=== PATIENT | male | born 1995 | race African-American/Black ===

== ENCOUNTER 2019-07-09 15:17 | Emergency (ER) | payer OTHER ==
[2019-07-09 15:23] VITALS: BP 148/65
--- NOTE | 2019-07-09 15:53 | ER Document Report ---
ED Medical Screen (RME) - General Chief Complaint: Back Pain Stated Complaint: BACK PAIN Time Seen by Provider: 07/09/19 15:50 Mode of Arrival: Ambulatory Information source: Patient Notes: 23-year-old male presented to ED for complaint of low back pain. He would also like STD checks. 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 We have ordered chlamydia and gonorrhea and a UA. He will be seen by another provider. RME TRAVEL OUTSIDE OF THE [place] IN LAST 30 DAYS: No - Related Data Allergies/Adverse Reactions: No Known Allergies Allergy (Verified 07/09/19 15:42) Past Medical History - Social History Chew tobacco use (# tins/day): No Frequency of alcohol use: None Drug Abuse: None Physical Exam - Vital signs Vitals: Temp Pulse Resp BP Pulse Ox 98.7 F 69 18 148/65 H 98 07/09/19 15:22 07/09/19 15:22 07/09/19 15:22 07/09/19 15:22 07/09/19 15:22 Course - Vital Signs Vital signs: Temp Pulse Resp BP Pulse Ox 98.7 F 69 18 148/65 H 98 07/09/19 15:22 07/09/19 15:22 07/09/19 15:22 07/09/19 15:22 07/09/19 15:22
[2019-07-09 16:30] LABS: APPEARANCE,URINE CLEAR; BILIRUBIN,URINE NEGATIVE (NEGATIVE); COLOR,URINE STRAW; GLUCOSE, URINE NEGATIVE (NEGATIVE); KETONES,URINE NEGATIVE (NEGATIVE); LEUKOCYTE ESTERASE,URINE NEGATIVE (NEGATIVE); NITRITE,URINE NEGATIVE (NEGATIVE); PROTEIN,URINE NEGATIVE (NEGATIVE); URINE SPECIFIC GRAVITY 1.006; UROBILINOGEN,URINE NEGATIVE mg/dL (<2.0)
--- NOTE | 2019-07-09 17:10 | ER Document Report ---
HPI - HPI Time Seen by Provider: 07/09/19 15:50 Pain Level: 4 Notes: 23-year-old male presents emergency room for evaluation of lower back pain that is been bothering him for the last 8 months, states that he is unable to lift heavy weight because the pain is become progressively worse. Patient just returned from [place] and would like this checked out. Patient is also requesting a GC chlamydia since he is coming back from his appointment. States worse with movements better at rest. Has not tried any [id number] medications for his pain. Has not been seen for his back pain previously. Denies fevers, chills, chest pain,palpitations, shortness of breath, dyspnea, nausea, vomiting, diarrhea, abdominal pain, hematuria,blurred vision, double vision, loss of vision, speech changes, LH, dizziness, syncope, headaches, wheezing, ST, URI, neck pain, weakness, bowel or bladder dysfunction, saddle anesthesia, numbness or tingling in bilateral upper or lower extremities equally, muscle paralysis, weakness in bilateral upper or lower extremities equally or rash. Denies IV drug use. - REPRODUCTIVE Reproductive: DENIES: : Past Medical History - General Information source: Patient - Social History Smoking Status: Current Some Day Smoker Chew tobacco use (# tins/day): No Frequency of alcohol use: None Drug Abuse: None Family History: Reviewed & Not Pertinent Patient has suicidal ideation: No Patient has homicidal ideation: No Vertical Provider Document - CONSTITUTIONAL Agree With Documented VS: Yes Exam Limitations: No Limitations General Appearance: WD/WN Notes: PHYSICAL EXAMINATION:reviewed vital signs by RN GENERAL: Well-appearing, well-nourished and in no acute distress. HEAD: Atraumatic, normocephalic. EYES: Pupils equal round and reactive to light, extraocular movements intact, sclera anicteric, conjunctiva are normal. ENT: Nares patent, oropharynx clear without exudates. Moist mucous membranes. NECK: Normal range of motion, supple without lymphadenopathy LUNGS: Breath sounds clear to auscultation bilaterally and equal. No wheezes rales or rhonchi. HEART: Regular rate and rhythm without murmurs ABDOMEN: Soft, nontender, nondistended abdomen. No guarding, no rebound. No masses appreciated. Musculoskeletal: Normal range of motion, no pitting or edema. No cyanosis. Pain with flexion and extension at 50 degrees, positive straight leg test. Normal hip rotation. DTR +2 in BLE equally. Strength 5 out of 5 both distally and proximally to bilateral lower extremities normal motor and sensory function in BLE equally. Distal pulses + 2 BLE equally. Noted paraspinal tenderness near L2 and L3. Strength 5 out of 5 in bilateral lower extremities equally. no spinal tenderness. No CVA tenderness bilaterally. Femoral pulses + 2 bilaterally and equally. No abrasions, scars, lacerations, ecchymosis of any recent trauma. normal gait. NEUROLOGICAL: Cranial nerves grossly intact. Normal speech, normal gait. Normal sensory, motor exams PSYCH: Normal mood, normal affect. SKIN: Warm, Dry, normal turgor, no rashes or lesions noted. - INFECTION CONTROL TRAVEL OUTSIDE OF THE [place] IN LAST 30 DAYS: No Course - Re-evaluation Re-evalutation: 07/09/19 17:07 Presentation of a well appearing patient complaining of acute on chronic back pain. No rapid progression of symptoms, systemic symptoms including fevers, chills, weight loss, history of recent bacterial infection, bilateral symptoms, numbness, weakness, difficulty walking, urinary retention or bowel incontinence, personal history of cancer, immunosuppression, diabetes, known AAA, or history of IV drug use. Exam is without point tenderness over vertebral bodies, pulsatile abdominal mass, and patient has symmetric and intact lower extremity strength, sensation, and reflexes without clonus. 2+ symmetric medial malleolar and dorsalis pedis pulses Based on history and physical, I have a very low suspicion of a concerning etiology of pain including epidural compression syndrome, spinal infection, transverse myelitis, malignancy, abdominal aortic aneurysm, renal colic, acute lower extremity claudication, neurogenic claudication, ankylosing spondylitis, or other intra-abdominal process. Patient has never had any diagnostic imaging of his lumbar spine, patient is requesting it today, this does seem fair since patient states he has been doing heavy lifting and there could be a concern for compression fracture lumbar xray shows narrowing in the lumbar spine, no acute fracture dislocation. Your GC chlamydia was negative Plan to manage conservatively with outpatient analgesia, analgesia, and physical therapy. - Acetaminophen 650 q 4 + ibuprofen 600 q 6 - Continue normal daily activities as tolerated by pain - Provide with standard musculoskeletal back pain exercise instructions - Instruct to follow up with primary care provider if symptoms not improving - Provide careful return precautions and concerning symptoms to watch for. 07/09/19 18:28 - Vital Signs Vital signs: Temp Pulse Resp BP Pulse Ox 98.7 F 69 18 148/65 H 98 07/09/19 15:22 07/09/19 15:22 07/09/19 15:22 07/09/19 15:22 07/09/19 15:22 Discharge - Discharge Clinical Impression: Lumbar back pain, Concern about STD in male without diagnosis Condition: Stable Disposition: HOME, SELF-CARE Instructions: Low Back Pain ([facility]), Muscle Strain ([facility]), Pain Medication Injection ([facility]), Warm Packs ([facility]) Additional Instructions: You have been seen in the Emergency Department (ED) today for back pain. Your workup and exam have not shown any acute abnormalities and you are likely suffering from muscle strain or possible problems with your discs, but there is no treatment that will fix your symptoms at this time. Please take the naproxen that has been prescribed as directed. You should also purchase a local lidocaine cream such as "aspercreme with lidocaine" and use per bottle instructions to the affected area. Apply heat to the area as often as you are able. Continue to keep active and avoid prolonged periods of bed rest. Your chlamydia gonorrhea was negative Please follow up with your doctor as soon as possible regarding today's ED visit and your back pain. Return to the ED for worsening back pain, fever, weakness or numbness of either leg, or if you develop either (1) an inability to urinate or have bowel movements, or (2) loss of your ability to control your bathroom functions (if you start having "accidents"), or if you develop other new symptoms that concern you.concern you. Prescriptions: Meloxicam [Mobic] 7.5 mg PO DAILY #7 tablet Methocarbamol [Robaxin 500 mg Tablet] 500 mg PO QID PRN #15 tablet PRN Reason: Forms: Return to Work Referrals: AMELIA FUNES JR, DO [ACTIVE PROVISIONAL STAFF] - Follow up as needed SHYANNE WIN MD [ACTIVE STAFF] - Follow up as needed
--- NOTE | 2019-07-09 17:23 | RADIOLOGY REPORT (SQ) ---
EXAM DESCRIPTION: L SPINE WHOLE COMPLETED DATE/TIME: 07/09/2019 5:12 pm REASON FOR STUDY: new onset lower back pain COMPARISON: None. NUMBER OF VIEWS: Five views including obliques. TECHNIQUE: AP, lateral, oblique, and sacral radiographic images acquired of the lumbar spine. LIMITATIONS: None. FINDINGS: MINERALIZATION: Normal. SEGMENTATION: Normal. No transitional anatomy. ALIGNMENT: Normal. VERTEBRAE: Maintained height. No fracture or worrisome bone lesion. DISCS: Mild L5-S1 intervertebral disc space narrowing. POSTERIOR ELEMENTS: Pedicles and facets are intact. No pars defect or posterior arch defects. HARDWARE: None in the spine. PARASPINAL SOFT TISSUES: Normal. PELVIS: Intact as visualized. No fractures or worrisome bone lesions. SI joints intact. OTHER: No other significant finding. IMPRESSION: Mild L5-S1 intervertebral disc space narrowing. TECHNICAL DOCUMENTATION: JOB ID: [id number]- All Rights Reserved Reading location - IP/workstation name: [email or web address]
[2019-07-09 17:52] LABS: CHLAM PCR NOT DETECTED (NOT DETECT)
[2019-07-09] MEDS ORDERED: CEFTRIAXONE INJ 250 MG VIAL IM ONE (17:58)
[2019-07-09] MEDS ORDERED: AZITHROMYCIN 1 GM SUSP PACKET PO ONE (17:58)
[2019-07-09] MEDS ORDERED: LIDOCAINE 1% INJ-PF (10 MG/ML) 30 ML SDV INJ ONE (17:58)
== END 2019-07-09 18:56 | disposition home or self-care (01) ==
LOC: ER 15:17
DX: M54.5 Low back pain (principal); Z20.2 Contact with and (suspected) exposure to infections with a predominantly sexual mode of transmission; F17.200 Nicotine dependence, unspecified, uncomplicated
CPT/HCPCS: 72110; 81001; 87491; 87591; 99283

== ENCOUNTER 2019-08-15 11:01 | Emergency (ER) | payer OTHER ==
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
[2019-08-15] MEDS ORDERED: CEFAZOLIN 2 GM/D5W RTU 2 GM/50 ML RTUPB IV ONE (16:28)
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
[2019-08-15] MEDS ORDERED: CEFAZOLIN 1 GM/D5W RTU 1 GM/50 ML RTUPB IV ONE ×2 (17:06)
[2019-08-15] MEDS ORDERED: CEFAZOLIN 1 GM/D5W RTU 2 GM/100 ML RTUPB IV ONE (17:22)
[2019-08-15] MEDS ORDERED: ONDANSETRON HCL INJ/PF 4 MG/2 ML SDV IV ONE (17:48)
[2019-08-15] MEDS ORDERED: HYDROMORPHONE HCL INJ/PF 2 MG/ML AMPULE IV ONE (17:48)
[2019-08-15 20:02] VITALS: BP 124/62
== END 2019-08-15 19:42 ==
LOC: ER 11:01
DX: S02.40CA Maxillary fracture, right side, initial encounter for closed fracture (principal); R68.84 Jaw pain; W50.0XXA Accidental hit or strike by another person, initial encounter; Y93.71 Activity, boxing
CPT/HCPCS: 99284; 96375; 96365; 70110; J0690; J1170; J2405

== ENCOUNTER 2020-04-29 16:42 | Emergency (ER) | payer OTHER ==
[2020-04-29] MEDS ORDERED: NORMAL SALINE 1000 ML 1,000 ML IV ONE (19:07)
[2020-04-29] MEDS ORDERED: METOCLOPRAMIDE HCL INJ/PF 10 MG/2 ML SDV IV ONE (19:07)
[2020-04-29] MEDS ORDERED: KETOROLAC TROMETHAMINE INJ/PF 30 MG/1 ML SDV IV ONE (19:07)
[2020-04-29] MEDS ORDERED: DIPHENHYDRAMINE HCL 50 MG/ML VIAL IV ONE (19:07)
--- NOTE | 2020-04-29 19:12 | ER Document Report ---
ED General - General Chief Complaint: Headache Stated Complaint: HEADACHE Notes: Patient is a 24-year-old -[place] male with no significant past medical history who presents the emergency department the chief complaint of headache that began a month ago. Patient reports about 2 months ago he started having generalized weakness. He states that he was constantly fatigued. 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 He states starting about 2 months ago he just felt unmotivated and very weak and could not do his normal activities. He states about a month later he developed a headache. He states the headaches original development was gradual in onset. States that it is pressure-like in the bilateral frontal areas and right occipital area. He states the pain does not radiate but is been constant since onset. Is not palliated by anything but can be provoked by jarring movements. He states this is been associated with a knot in the upper stomach especially with eating which provokes nausea and vomiting. He reports that his father in his early 40s was diagnosed with a brain tumor by CT scan that was a primary tumor. Reports he has been ignoring the symptoms for approximately 2 months but was concerned on his trip to [place] a week or so ago and went to an emergency department there. He reports they did basic blood work and urine and told him everything looked fine and discharged him. He states he did no imaging. He reports the problems persist. He returned from [place] 5 or 6 days ago. He denies any head injury, fever, visual disturbances, dizziness, neck pain, back pain, chest pain, shortness of breath, rashes or paresthesias. TRAVEL OUTSIDE OF THE [place] IN LAST 30 DAYS: No - Related Data Allergies/Adverse Reactions: No Known Allergies Allergy (Verified 08/15/19 11:26) Past Medical History - Social History Smoking Status: Never Smoker Frequency of alcohol use: None Drug Abuse: None Family History: Reviewed & Not Pertinent Past Surgical History: Reports: Hx Orthopedic Surgery - rotator cuff, Hx Tonsillectomy Review of Systems - Review of Systems Constitutional: denies: Fever EENT: denies: Throat pain Cardiovascular: denies: Lightheaded Respiratory: denies: Short of breath Gastrointestinal: denies: Abdominal pain Genitourinary: denies: Pain Male Genitourinary: denies: Penile discharge Musculoskeletal: denies: Neck pain Skin: denies: Change in color Hematologic/Lymphatic: denies: Easy bleeding Neurological/Psychological: Headaches Physical Exam - Vital signs Vitals: Temp 98.8 F 04/29/20 18:49 - General General appearance: Appears well, Alert In distress: None - HEENT Head: Normocephalic, Atraumatic Eyes: Normal Conjunctiva: Normal Extraocular movements intact: Yes Eyelashes: Normal Pupils: PERRL Anterior chamber: Normal Fundascopic: Normal Ears: Normal External canal: Normal Tympanic membrane: Normal Sinus: Normal, Other - No tenderness to percussion Nasal: Normal Mouth/Lips: Normal Mucous membranes: Normal Pharynx: Normal Neck: Normal, Supple - Respiratory Respiratory status: No respiratory distress Chest status: Nontender Breath sounds: Normal Chest palpation: Normal - Cardiovascular Rhythm: Regular Heart sounds: Normal auscultation - Abdominal Inspection: Normal Distension: No distension Bowel sounds: Normal Tenderness: Tender - Slight epigastric Organomegaly: No organomegaly - Back Back: No: CVA tenderness - Extremities General upper extremity: Normal inspection, Nontender, Normal color, Normal ROM, Normal temperature General lower extremity: Normal inspection, Nontender, Normal color, Normal ROM, Normal temperature, Normal weight bearing. No: Mitzi's sign - Neurological Neuro grossly intact: Yes Cognition: Normal Orientation: AAOx4 Dean Coma Scale Eye Opening: Spontaneous [place] Coma Scale Verbal: Oriented [place] Coma Scale Motor: Obeys Commands [place] Coma Scale Total: 15 Speech: Normal Cranial nerves: Normal Cerebellar coordination: Normal Motor strength normal: LUE, RUE, LLE, RLE Additional motor exam normals: Equal community services manager. No: Pronator drift, Weakness Sensory: Normal - Psychological Associated symptoms: Normal affect, Normal mood - Skin Skin Temperature: Warm Skin Moisture: Dry Skin Color: Normal Course - Re-evaluation Re-evalutation: 04/29/20 23:01 Reevaluation at this time, patient is resting comfortably in the room. His headache is completely resolved. He states he is feeling much better. CT scan of the head is negative for any acute process per radiologist. Remainder the work-up reveals no emergent findings. Patient is pending a COVID-19 test. We discussed his status as a patient under investigation. He will remain in self- isolation and quarantine in his home for at least 10 days per CDC guidelines or until he is 24 hours symptom-free without the use of medications or until he receives a notification that his COVID test was negative. Encouraged to follow- up closely with his primary doctor and advised to return here or any ER immediately with any new, persistent or worsening symptoms. He verbalized understood and agreed. 04/29/20 23:01 - Vital Signs Vital signs: Temp Pulse Resp BP Pulse Ox 98.8 F 64 18 123/47 L 100 04/29/20 18:54 04/29/20 18:54 04/29/20 18:54 04/29/20 18:54 04/29/20 18:54 - Laboratory Result Diagrams: 04/29/20 20:15 04/29/20 20:15 Laboratory results interpreted by me: 04/29/20 04/29/20 04/29/20 20:15 20:15 22:38 RBC 5.87 H RDW 14.2 H Plt Count 136 L Carbon Dioxide 31 H Total Protein 8.4 H Albumin 5.1 H Urine Protein 30 H Urine Ascorbic Acid 40 H Discharge - Discharge Clinical Impression: Person under investigation for COVID-19 Headache Qualifiers: Headache type: unspecified Headache chronicity pattern: acute headache Intractability: not intractable Qualified Code(s): R51 - Headache Condition: Stable Disposition: HOME, SELF-CARE Instructions: COVID-19 Guidance for Persons Under Investigation Additional Instructions: You are a patient under investigation for COVID-19. Your test is pending. Please remain in self-isolation and quarantine in your home for at least 10 days or until you receive a call that your COVID test is negative. Follow-up with your regular doctor in 2 to 3 days for reevaluation. Return here or any ER immediately with any new, persistent or worsening symptoms. Referrals: [facility] [NO LOCAL MD] - Follow up as needed
[2020-04-29 20:28] LABS: ABSOLUTE EOSINOPHILS # (AUTO) 0.1 10^3/uL (0.0-0.6); ABSOLUTE LYMPHOCYTES (AUTO) 3.1 10^3/uL (0.5-4.7); ABSOLUTE MONOCYTES (AUTO) 0.8 10^3/uL (0.1-1.4); ABSOLUTE NEUT (AUTO) 4.3 10^3/uL (1.7-8.2); BASOPHILS % (AUTO) 0.5 % (0-2); EOSINOPHILS % (AUTO) 1.2 % (0-6); HEMATOCRIT 49.1 % (37.9-51.0); LYMPHOCYTES % (AUTO) 37.3 % (13-45); MEAN CORPUSCULAR HEMOGLOBIN 28.9 pg (27.0-33.4); MEAN CORPUSCULAR HGB CONC 34.6 g/dL (32.0-36.0); MEAN CORPUSCULAR VOLUME 84 fl (80-97); MONOCYTES % (AUTO) 9.3 % (3-13); PLATELET COUNT 136 10^3/uL (150-450); RED BLOOD COUNT 5.87 10^6/uL (4.35-5.55); RED CELL DISTRIBUTION WIDTH 14.2 % (11.5-14.0); SEGMENTED NEUTROPHILS % (AUTO) 51.7 % (42-78); TOTAL CELLS COUNTED % (AUTO) 100 %; WHITE BLOOD COUNT 8.4 10^3/uL (4.0-10.5)
--- NOTE | 2020-04-29 20:47 | RADIOLOGY REPORT (SQ) ---
CT HEAD WITHOUT THEN WITH IV CONTRAST HISTORY: Headache with nausea and vomiting. Family history of brain tumor. COMPARISON: None. TECHNIQUE: CT scan of the brain was performed without and with IV contrast. This exam was performed according to our departmental dose-optimization program, which includes automated exposure control, adjustment of the mA and/or kV according to patient size and/or use of iterative reconstruction technique. FINDINGS: The ventricles, cisterns, and sulci are age-appropriate. There is no abnormal parenchymal or dural enhancement. No evidence of acute infarction, intracranial hemorrhage, extra-axial fluid collection, or midline shift. No air-fluid levels are seen in the paranasal sinuses to suggest acute sinusitis. No depressed skull fracture. IMPRESSION: No acute intracranial findings.
[2020-04-29 20:59] LABS: ALBUMIN 5.1 g/dL (3.5-5.0); ALKALINE PHOSPHATASE 74 U/L (38-126); ANION GAP 10 (5-19); ASPARTATE AMINO TRANSFERASE 36 U/L (17-59); BILIRUBIN,DIRECT 0.3 mg/dL (0.0-0.4); BILIRUBIN,TOTAL 0.6 mg/dL (0.2-1.3); BLOOD UREA NITROGEN 12 mg/dL (7-20); CARBON DIOXIDE 31 mmol/L (22-30); CHLORIDE 101 mmol/L (98-107); GLUCOSE 75 mg/dL (75-110); POTASSIUM 3.7 mmol/L (3.6-5.0); TOTAL PROTEIN 8.4 g/dL (6.3-8.2)
[2020-04-29 22:58] LABS: APPEARANCE,URINE CLEAR; BILIRUBIN,URINE NEGATIVE (NEGATIVE); COLOR,URINE YELLOW; GLUCOSE, URINE NEGATIVE (NEGATIVE); KETONES,URINE NEGATIVE (NEGATIVE); PROTEIN,URINE 30 mg/dL (NEGATIVE); URINE SPECIFIC GRAVITY 1.032; UROBILINOGEN,URINE NEGATIVE mg/dL (<2.0)
[2020-04-29 23:12] VITALS: BP 116/61
== END 2020-04-29 23:12 | disposition home or self-care (01) ==
LOC: ER 16:42
DX: R51 Headache (principal); R53.1 Weakness; R53.83 Other fatigue; R11.2 Nausea with vomiting, unspecified; Z20.828 Contact with and (suspected) exposure to other viral communicable diseases
CPT/HCPCS: 99285; 96361; 96374; 96375; 36415; 83690; 85025; 87635; 80053; 81001; 70470; J1200; J1885; J2765; J7030; C9803